=== PATIENT | female | born 1990 | race Caucasian/White ===

== ENCOUNTER 2019-05-11 06:06 | Inpatient (IN) | payer BC ==
[2019-05-11] MEDS ORDERED: Misoprostol 25 MCG (1/4 of 100 MCG) Tab VAG PRN (07:10)
[2019-05-11] MEDS ORDERED: Ondansetron 4 MG/2 ML SDV IVPUSH PRN (07:10)
[2019-05-11] MEDS ORDERED: Sodium Chloride 0.9% 10 ML Syringe FLUSH PRN (07:10)
[2019-05-11] MEDS ORDERED: Famotidine 20 MG Tab PO PRN (07:10)
[2019-05-11] MEDS ORDERED: Nalbuphine 10 MG/ML Syringe IVPUSH PRN (07:10)
--- NOTE | 2019-05-11 07:13 | PCM.LDHP ---
L&D History of Present Illness - General Date of Service: 05/11/19 Admit Problem/Dx: Patient Status Order with Admit Dx/Problem 05/11/19 07:10 Patient Status [ADT] Routine Admission Diagnosis/Problem Admission Diagnosis/Problem Normal in third trimester Source of Information: Patient History Limitations: Reports: No Limitations - History of Present Illness Introduction:: Patient is a 28 y/o at 40 2/7 wks who presents for IOL. Doing well. Notes good FM. 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: : 1 Para: 0 LMP (Approximate): - Past Surgical History Other Surgical History Comment: No past surgical history Social & Family History - Tobacco Use Smoking Status *Q: Never Smoker - Alcohol Use Alcohol Use History: No - Recreational Drug Use Recreational Drug Use: No Drug Use in Last 12 Months: No H&P Review of Systems - Review of Systems: Review Of Systems: See Below General: Reports: No Symptoms Pulmonary: Reports: No Symptoms Cardiovascular: Reports: No Symptoms Gastrointestinal: Reports: No Symptoms Genitourinary: Reports: No Symptoms Musculoskeletal: Reports: No Symptoms Psychiatric: Reports: No Symptoms Neurological: Reports: No Symptoms L&D Exam - Exam Exam: See Below - OB Specific Contraction Intensity: Irritability Movement: Active Heart Tones: Present Heart Tones per Min: 140 Heart Rate (FHR) Variability: Moderate (6-25 bmp) Presentation: Vertex - Faith Score Faith Score Cervix Position: Posterior Faith Score Consistency: Medium Faith Score Effacement: 31-50% Faith Score Dilation: 1-2 cm Faith Score Infant's Station: -3 Faith Score Total: 3 - Exam General: Alert, Oriented, Cooperative Lungs: Clear to Auscultation, Normal Respiratory Effort Cardiovascular: Regular Rate, Regular Rhythm GI/Abdominal Exam: Soft, Non-Tender Genitourinary: Normal external exam Extremities: Normal Inspection Skin: Warm, Dry, Intact - Patient Data Result Diagrams: 05/11/19 07:40 - Problem List (1) 40 weeks gestation of SNOMED Code(s): 60121944 ICD Code: Z3A.40 - 40 WEEKS GESTATION OF Status: Acute Current Visit: Yes Problem List Initiated/Reviewed/Updated: Yes Orders Last 24hrs: Active Orders 24 hr Category Date Time Status Patient Status [ADT] Routine ADT 05/11/19 07:10 Ordered Communication Order [RC] ASDIRECTED Care 05/11/19 07:10 Ordered Communication Order [RC] ASDIRECTED Care 05/11/19 07:10 Ordered Communication Order [RC] ASDIRECTED Care 05/11/19 07:10 Ordered Heart Tones [RC] ASDIRECTED Care 05/11/19 07:11 Ordered Monitoring [RC] INTERMITTENT Care 05/11/19 07:10 Ordered Non Stress Test [RC] PER UNIT ROUTINE Care 05/11/19 07:10 Ordered Notify Provider [RC] ASDIRECTED Care 05/11/19 07:10 Ordered Notify Provider [RC] PRN Care 05/11/19 07:10 Ordered Peripheral IV Care [RC] . DIRECTED Care 05/11/19 07:11 Ordered Vaginal Exam [RC] ASDIRECTED Care 05/11/19 07:10 Ordered Vital Signs [RC] ASDIRECTED Care 05/11/19 07:10 Ordered Regular Diet [DIET] Diet 05/11/19 Breakfast Ordered CBC W/O DIFF,HEMOGRAM [HEME] Routine Lab 05/11/19 07:10 Ordered RAPID PLASMA REAGIN,RPR [CHEM] Routine Lab 05/11/19 07:10 Ordered TYPE AND SCREEN [BBK] Routine Lab 05/11/19 07:10 Ordered Famotidine [Pepcid] Med 05/11/19 07:10 Ordered 20 mg PO Q12H PRN Lactated Ringers [Ringers, Lactated] 1,000 ml Med 05/11/19 07:15 Ordered IV ASDIRECTED Nalbuphine [Nubain] Med 05/11/19 07:10 Ordered 10 mg IVPUSH Q2H PRN Ondansetron [Zofran] Med 05/11/19 07:10 Ordered 4 mg IVPUSH Q4H PRN Oxytocin/Lactated Ringers [Pitocin in LR 10 Units/1,000 Med 05/11/19 07:15 Ordered ML] 10 unit in 1,000 ml IV .CONTINUOUS Oxytocin/Lactated Ringers [Pitocin in LR 10 Units/1,000 Med 05/11/19 07:15 Ordered ML] 10 unit in 1,000 ml IV TITRATE Sodium Chloride 0.9% [Saline Flush] Med 05/11/19 07:10 Ordered 10 ml FLUSH ASDIRECTED PRN miSOPROStoL [Cytotec] Med 05/11/19 07:10 Ordered 25 mcg VAG Q4H PRN Electronic Heart Tones Ext w TOCO [WOMSER] Oth 05/11/19 07:10 Ordered Routine Electronic Heart Tones Internal [WOMSER] Per Unit Oth 05/11/19 07:10 Ordered Routine Peripheral IV Insertion Adult [OM.PC] Routine Oth 05/11/19 07:10 Ordered Resuscitation Status Routine Resus Stat 05/11/19 07:10 Ordered Assessment/Plan Comment:: * labs to be done * GBS negative * Nolasco bulb placed. Will also start with Cytotec. Transition into pitocin when able * Pain management per patient preference * Anticipate
[2019-05-11] MEDS ORDERED: Oxytocin/Lactated Ringers 10 UNIT/1,000 ML BAG IV SCH ×2 (07:15)
[2019-05-11] MEDS ORDERED: Misoprostol 25 MCG (1/4 of 100 MCG) Tab ONE (07:19)
[2019-05-11] MEDS: Lactated Ringers 1,000 ML IV SCH ×4 (15:49→21:47)
[2019-05-11] MEDS ORDERED: fentaNYL 100 MCG/2 ML SDV EPIDUR PRN (19:38)
[2019-05-11] MEDS ORDERED: ePHEDrine 50 MG/ML SDV IVPUSH PRN (19:38)
[2019-05-11] MEDS ORDERED: diphenhydrAMINE 50 MG/ML SDV IVPUSH PRN (19:38)
[2019-05-11] MEDS: Bupivacaine/fentaNYL/NS 100 ML Bag EPIDUR PRN (19:53)
--- NOTE | 2019-05-11 20:39 | PCM.PREANE ---
Preanesthetic Assessment - Anesthesia/Transfusion/Family Hx Anesthesia History: No Prior Anesthesia Family History of Anesthesia Reaction: No Transfusion History: No Prior Transfusion(s) - Review of Systems General: No Symptoms Pulmonary: No Symptoms Cardiovascular: No Symptoms Gastrointestinal: No Symptoms Neurological: No Symptoms Other: Reports: None - Physical Assessment Vital Signs: Last Vital Signs Temp 36.8 C 05/11/19 07:10 Pulse 80 05/11/19 07:10 Resp 16 05/11/19 07:10 BP 112/71 05/11/19 07:10 Pulse Ox 96 05/11/19 07:10 Height: 1.73 m Weight: 79.379 kg ASA Class: 2 Mental Status: Alert & Oriented x3 Airway Class: Mallampati = 2 Dentition: Reports: Normal Dentition Thyro-Mental Finger Breadths: 3 Mouth Opening Finger Breadths: 3 ROM/Head Extension: Full Lungs: Clear to Auscultation, Normal Respiratory Effort Cardiovascular: Regular Rate, Regular Rhythm - Lab Values: Laboratory Last Values WBC 10.07 K/mm3 (3.98-10.04) H 05/11/19 07:40 RBC 4.11 M/mm3 (3.98-5.22) 05/11/19 07:40 Hgb 12.1 gm/dl (11.2-15.7) 05/11/19 07:40 Hct 36.2 % (34.1-44.9) 05/11/19 07:40 MCV 88.1 fl (79.4-94.8) 05/11/19 07:40 MCH 29.4 pg (25.6-32.2) 05/11/19 07:40 MCHC 33.4 g/dl (32.2-35.5) 05/11/19 07:40 RDW Std Deviation 43.0 fL (36.4-46.3) 05/11/19 07:40 Plt Count 237 K/mm3 (182-369) 05/11/19 07:40 MPV 10.9 fl (9.4-12.3) 05/11/19 07:40 Blood Type B POSITIVE 05/11/19 07:40 Gel Antibody Screen Negative 05/11/19 07:40 - Allergies Allergies/Adverse Reactions: Allergies Allergy/AdvReac Type Severity Reaction Status Date / Time No Known Allergies Allergy Verified 01/30/20 08:30 - Acknowledgements Anesthesia Type Planned: Epidural Pt an Appropriate Candidate for the Planned Anesthesia: Yes Alternatives and Risks of Anesthesia Discussed w Pt/Guardian: Yes Pt/Guardian Understands and Agrees with Anesthesia Plan: Yes PreAnesthesia Questionnaire Genitourinary History: 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 [employer] History: Reports: - Past Surgical History Other Surgical History Comment: No past surgical history - SUBSTANCE USE Smoking Status *Q: Never Smoker Second Hand Smoke Exposure: No Recreational Drug Use History: No - HOME MEDS Home Medications: Home Meds Cetirizine [ZyrTEC] 10 mg PO DAILY 05/11/19 [History] [id number]/Iron Fumarate/FA/DSS [ 19 Tablet] 1 tab PO DAILY 05/11/19 [ History] - CURRENT (IN HOUSE) MEDS Current Meds: Current Medications Diphenhydramine HCl (Benadryl) 25 mg IVPUSH Q6H PRN PRN Reason: pruritis Ephedrine Sulfate (Ephedrine Sulfate) 5 mg IVPUSH ASDIRECTED PRN PRN Reason: Hypotension Famotidine (Pepcid) 20 mg PO Q12H PRN PRN Reason: Heartburn Fentanyl (Sublimaze) 100 mcg EPIDUR Q3H PRN PRN Reason: Pain Last Admin: 05/11/19 19:52 Dose: 100 mcg Fentanyl/Bupivacaine HCl (Fentanyl/Bupivacaine/Ns 2 Mcg-0.125% 100 Ml) 100 ml EPIDUR ASDIRECTED PRN PRN Reason: Pain Last Admin: 05/11/19 19:53 Dose: 100 ml Lactated Ringer's (Ringers, Lactated) 1,000 mls @ 40 mls/hr IV ASDIRECTED ALIX Last Admin: 05/11/19 20:30 Dose: 40 mls/hr Oxytocin/Lactated Ringer's (Pitocin In Lr 10 Units/1,000 Ml) 10 unit in 1,000 mls @ 12 mls/hr IV TITRATE ALIX; Protocol Last Titration: 05/11/19 19:01 Dose: 7 munits/min, 42 mls/hr Oxytocin/Lactated Ringer's (Pitocin In Lr 10 Units/1,000 Ml) 10 unit in 1,000 mls @ 500 mls/hr IV .CONTINUOUS ALIX Misoprostol (Cytotec) 25 mcg VAG Q4H PRN PRN Reason: cervical ripening Last Admin: 05/11/19 12:14 Dose: 25 mcg Nalbuphine HCl (Nubain) 10 mg IVPUSH Q2H PRN PRN Reason: Pain Ondansetron HCl (Zofran) 4 mg IVPUSH Q4H PRN PRN Reason: Nausea/Vomiting Sodium Chloride (Saline Flush) 10 ml FLUSH ASDIRECTED PRN PRN Reason: Keep Vein Open Discontinued Medications Misoprostol (Cytotec) Confirm Administered Dose 25 mcg .ROUTE .[facility]-MED ONE Stop: 05/11/19 07:20 Last Admin: 05/11/19 07:25 Dose: 25 mcg
--- NOTE | 2019-05-11 20:41 | PCM.PNLD ---
Labor Progress Note - VS & Meds Vital Signs: Last Vital Signs Temp 36.8 C 05/11/19 07:10 Pulse 80 05/11/19 07:10 Resp 16 05/11/19 07:10 BP 112/71 05/11/19 07:10 Pulse Ox 96 05/11/19 07:10 Active Medications: Current Medications Diphenhydramine HCl (Benadryl) 25 mg IVPUSH Q6H PRN PRN Reason: pruritis Ephedrine Sulfate (Ephedrine Sulfate) 5 mg IVPUSH ASDIRECTED PRN PRN Reason: Hypotension Famotidine (Pepcid) 20 mg PO Q12H PRN PRN Reason: Heartburn Fentanyl (Sublimaze) 100 mcg EPIDUR Q3H PRN PRN Reason: Pain Last Admin: 05/11/19 19:52 Dose: 100 mcg Fentanyl/Bupivacaine HCl (Fentanyl/Bupivacaine/Ns 2 Mcg-0.125% 100 Ml) 100 ml EPIDUR ASDIRECTED PRN PRN Reason: Pain Last Admin: 05/11/19 19:53 Dose: 100 ml Lactated Ringer's (Ringers, Lactated) 1,000 mls @ 40 mls/hr IV ASDIRECTED ALIX Last Admin: 05/11/19 20:30 Dose: 40 mls/hr Oxytocin/Lactated Ringer's (Pitocin In Lr 10 Units/1,000 Ml) 10 unit in 1,000 mls @ 12 mls/hr IV TITRATE ALIX; Protocol Last Titration: 05/11/19 19:01 Dose: 7 munits/min, 42 mls/hr Oxytocin/Lactated Ringer's (Pitocin In Lr 10 Units/1,000 Ml) 10 unit in 1,000 mls @ 500 mls/hr IV .CONTINUOUS [facility] Misoprostol (Cytotec) 25 mcg VAG Q4H PRN PRN Reason: cervical ripening Last Admin: 05/11/19 12:14 Dose: 25 mcg Nalbuphine HCl (Nubain) 10 mg IVPUSH Q2H PRN PRN Reason: Pain Ondansetron HCl (Zofran) 4 mg IVPUSH Q4H PRN PRN Reason: Nausea/Vomiting Sodium Chloride (Saline Flush) 10 ml FLUSH ASDIRECTED PRN PRN Reason: Keep Vein Open Discontinued Medications Misoprostol (Cytotec) Confirm Administered Dose 25 mcg .ROUTE .STK-MED ONE Stop: 05/11/19 07:20 Last Admin: 05/11/19 07:25 Dose: 25 mcg - Uterine Contractions Uterine Monitoring Mode: External [place] Contraction Intensity: Moderate Uterine Resting Tone: Soft - Monitoring Monitor Mode: External Ultrasound Heart Rate (FHR) Baseline: 130 Heart Rate (FHR) Variability: Moderate (6-25 bmp) Accelerations: Present, 10x10 (=/<32 wks) Decelerations: None Strip Review: Category I - Vaginal Exam Dilation (cm): 4 Effacement (Percent): 75 Station: -2 Cervical Position: Midposition - Labor Progress (Free Text) Labor Progress: Doing well. Just received her epidural. Pitocin at 7. AROM performed with release of scant amount of clear fluid. Continue present management
[2019-05-12] MEDS ORDERED: Bupivacaine 0.25% 10 ML SDV ONE
[2019-05-12] MEDS: Bupivacaine/fentaNYL/NS 100 ML Bag EPIDUR PRN (05:17)
[2019-05-12] MEDS ORDERED: Methylergonovine 0.2 MG/1 ML Amp ONE (06:15)
[2019-05-12] MEDS ORDERED: Misoprostol 200 MCG Tab ONE (06:15)
[2019-05-12] MEDS ORDERED: Misoprostol 200 MCG Tab PO ONE (06:22)
[2019-05-12] MEDS ORDERED: Methylergonovine 0.2 MG/1 ML Amp IM ONE (06:22)
[2019-05-12] MEDS ORDERED: ceFAZolin 1 GM in Premix Bag 1 BAG IV ONE (06:40)
--- NOTE | 2019-05-12 06:47 | PCM.DEL ---
L & D Note - General Info Date of Service: 05/12/19 - Delivery Note Labor: Induced by ARM, Induced by Oxytocin Cervical Ripening Method: Balloon Device Delivery Outcome: Livebirth Infant Delivery Method: Spontaneous Vaginal Delivery-Single Infant Delivery Mode: Spontaneous Presentation: Left Occiput Anterior (MARCO) Nuchal Cord: None Anesthesia Type: Epidural Amniotic Fluid Description: Clear Episiotomy Type: None Laceration: 2nd Degree, Perineal Suture type: Vicryl Suture size: 2-0 Placenta: Intact, Spontaneous Cord: 3 Vessels Estimated Blood Loss: 650 [place]: Bulb Syringe, Stimulated, Warmed, [place] Used, Warmer Used Delivery Comments (Free Text/Narrative):: Patient found to be complete and began pushing. With maternal pushing effort head delivered from an MARCO presentation, but then restituted to an ELINA presentation. No nuchal cord. With gentle downward tractions the shoulders and body delivered. placed on maternal abdomen. Cord clamped adn cut. Cord blood obtained. Placenta allowed time to separate and expelled intact. Patient with atony and bleeding at this time managed with buccal cytotec, IM methergine, and sweep of BRITTNEY. Given dose of Ancef for manual exploration. Good response to these interventions. Exam of the perineum showed a 2nd degree laceration which was repaired with a 2-0 vicryl in the typical fashion - General Info Date of Service: 05/12/19 - Patient Data Vitals - Most Recent: Last Vital Signs Temp 36.8 C 05/11/19 07:10 Pulse 80 05/11/19 07:10 Resp 16 05/11/19 07:10 BP 112/71 05/11/19 07:10 Pulse Ox 96 05/11/19 07:10 Weight - Most Recent: 79.379 kg I&O - Last 24 Hours: Intake & Output 05/11/19 05/11/19 05/12/19 14:59 22:59 06:59 Intake Total 3000 1700 Output Total 1100 Balance 3000 600 - Problem List & Annotations (1) 40 weeks gestation of SNOMED Code(s): 83014988 Code(s): Z3A.40 - 40 WEEKS GESTATION OF Status: Acute Current Visit: Yes (2) Vaginal delivery SNOMED Code(s): 291913601 Code(s): O80 - ENCOUNTER FOR FULL-TERM UNCOMPLICATED DELIVERY Status: Acute Current Visit: Yes (3) hemorrhage SNOMED Code(s): 82140274 Code(s): O72.1 - OTHER IMMEDIATE HEMORRHAGE Status: Acute Current Visit: Yes Qualifiers: hemorrhage type: third-stage Qualified Code(s): O72.0 - Third- stage hemorrhage - Problem List Review Problem List Initiated/Reviewed/Updated: Yes - My Orders Last 24 Hours: My Active Orders 05/11/19 07:10 Patient Status [ADT] Routine Communication Order [RC] ASDIRECTED Communication Order [RC] ASDIRECTED Communication Order [RC] ASDIRECTED Monitoring [RC] INTERMITTENT Non Stress Test [RC] PER UNIT ROUTINE Notify Provider [RC] ASDIRECTED Notify Provider [RC] PRN Vaginal Exam [RC] ASDIRECTED Vital Signs [RC] ASDIRECTED Famotidine [Pepcid] 20 mg PO Q12H PRN Nalbuphine [Nubain] 10 mg IVPUSH Q2H PRN Ondansetron [Zofran] 4 mg IVPUSH Q4H PRN Sodium Chloride 0.9% [Saline Flush] 10 ml FLUSH ASDIRECTED PRN miSOPROStoL [Cytotec] 25 mcg VAG Q4H PRN Electronic Heart Tones Ext w TOCO [WOMSER] Routine Electronic Heart Tones Internal [WOMSER] Per Unit Routine Peripheral IV Insertion Adult [OM.PC] Routine Resuscitation Status Routine 05/11/19 07:11 Heart Tones [RC] ASDIRECTED Peripheral IV Care [RC] . DIRECTED 05/11/19 07:15 Lactated Ringers [Ringers, Lactated] 1,000 ml IV ASDIRECTED Oxytocin/Lactated Ringers [Pitocin in LR 10 Units/1,000 ML] 10 unit in 1,000 ml IV .CONTINUOUS Oxytocin/Lactated Ringers [Pitocin in LR 10 Units/1,000 ML] 10 unit in 1,000 ml IV TITRATE 05/11/19 Breakfast Regular Diet [DIET] 05/12/19 06:40 ceFAZolin [Ancef] 1 gm Premix Bag 1 bag IV ONETIME 05/12/19 06:44 Patient Status Manage Transfer [TRANSFER] Routine - Assessment Assessment:: PPD#0 from - Plan Plan:: * Routine cares * monitor bleeding closely. Will not plan additional lab work unless patient symptomatic * Breast feeding * Discharge home in 1-2 days
[2019-05-12] MEDS ORDERED: Acetaminophen 325 MG Tab PO PRN (07:32)
[2019-05-12] MEDS ORDERED: Witch Hazel Medicated Pads 40/Jar TOP PRN (07:32)
[2019-05-12] MEDS ORDERED: Docusate Sodium 100 MG Cap PO PRN (07:32)
[2019-05-12] MEDS ORDERED: Benzocaine/Menthol 20%-0.5% Spray 56 GM Canister TOP PRN (07:32)
[2019-05-12] MEDS: Ibuprofen 600 MG Tab PO PRN ×2 (15:30→21:00)
--- NOTE | 2019-05-13 05:31 | PCM48HPAN ---
Post Anesthesia Note - EVALUATION WITHIN 48HRS OF ANESTHETIC Vital Signs in Normal Range: Yes Patient Participated in Evaluation: Yes Respiratory Function Stable: Yes Airway Patent: Yes Cardiovascular Function Stable: Yes Hydration Status Stable: Yes Pain Control Satisfactory: Yes Nausea and Vomiting Control Satisfactory: Yes Mental Status Recovered: Yes Vital Signs: Last Vital Signs Temp 36.3 C 05/12/19 20:31 Pulse 65 05/12/19 20:31 Resp 14 05/12/19 20:31 BP 119/68 05/12/19 20:31 Pulse Ox 97 05/12/19 20:31
[2019-05-13] MEDS: Ibuprofen 600 MG Tab PO PRN ×3 (06:10→18:05)
--- NOTE | 2019-05-13 08:38 | PCM.SN ---
- Free Text/Narrative Note: day 1 note: Patient is doing well in the period. Minimal lochia, voiding well, ambulated without problems. Baby is having some nursing concerns. Repeat is considering keeping the baby till tomorrow. We'll see how she does during the course of the day. Patient is afebrile, vital signs are stable Abdomen is flat, soft, uterus is below the umbilicus and is firm and nontender. Legs are nontender. Assessment: recovery going well. Plan: Routine care. Patient be discharged home within the next 24-48 hours.
[2019-05-14] MEDS: Ibuprofen 600 MG Tab PO PRN ×2 (04:03→09:55)
--- NOTE | 2019-05-14 06:15 | PCM.DCSUM1 ---
Discharge Summary - Hospital Course Free Text/Narrative:: 40+ week intrauterine admitted for induction of labor. Induction proceeded with artificial rupture membranes and oxytocin after cervical ripening with the balloon device. She delivered a viable, mcgarry, female vaginally. She had a second-degree perineal laceration. She is repaired with Vicryl in a routine fashion. Estimated blood loss was increased at 650 mL. Patient is breast-feeding. She has recovered nicely and is doing well with ambulation, voiding, pain control and nursing. She is desiring discharge home. Diagnosis: Stroke: No - Discharge Data Discharge Date: 05/14/19 Discharge Disposition: Home, Self-Care 01 Condition: Good - Referral to Home Health Primary Care Physician: Deepa Melo MD - Patient Instructions Diet: Regular Diet as Tolerated Activity: As Tolerated Activity, Other: Pelvic rest for 6 weeks Driving: May Drive Today Showering/Bathing: May Shower Showering/Bathing, Other: May Bathe Notify Provider of: Fever, Increased Pain, Swelling and Redness, Drainage, Nausea and/or Vomiting - Discharge Plan *PRESCRIPTION DRUG MONITORING PROGRAM REVIEWED*: No *COPY OF PRESCRIPTION DRUG MONITORING REPORT IN PATIENT RYAN: No Home Medications: Home Meds NJZ262/Iron Fumarate/FA/DSS [ 19 Tablet] 1 tab PO DAILY 05/11/19 [ History] Docusate Sodium [Colace] 100 mg PO BID PRN cap 05/12/19 [Rx] Ibuprofen [Motrin] 600 mg PO Q6H PRN tablet 05/12/19 [Rx] Referrals: Deepa Melo MD [Primary Care Provider] - (2-3 weeks for check ) - Discharge Summary/Plan Comment DC Time >30 min.: No Discharge Summary/Plan Comment: Discharge instructions: 1. Discharge home 2. Diet, activity and follow-up discussed with patient. Recommend nursing diet with increased calories and calcium. 3. Precautions given concern increased pain, bleeding, temperature, signs/ symptoms of DVT/PE. 4. Medications per home medication was printed, discussed with and given to the patient. 5. [facility] Diagnosis: 1. Term -delivered. 2. hemorrhage with Blood loss at delivery 650 mL. Condition: Good - Patient Data Vitals - Most Recent: Last Vital Signs Temp 36.6 C 05/14/19 04:06 Pulse 64 05/14/19 04:06 Resp 14 05/14/19 04:06 BP 112/78 05/14/19 04:06 Pulse Ox 97 05/14/19 04:06 Weight - Most Recent: 79.379 kg I&O - Last 24 hours: Intake & Output 05/13/19 05/13/19 05/14/19 14:59 22:59 06:59 Intake Total 240 Balance 240 Med Orders - Current: Current Medications Acetaminophen (Tylenol) 650 mg PO Q4H PRN PRN Reason: mild pain or fever Benzocaine/Menthol (Dermoplast Pain Relief [place]) 0 gm TOP ASDIRECTED PRN PRN Reason: Perineal Comfort Measure Last Admin: 05/12/19 09:58 Dose: 1 can Docusate Sodium (Colace) 100 mg PO BID PRN PRN Reason: Constipation Last Admin: 05/13/19 11:46 Dose: 100 mg Ibuprofen (Motrin) 600 mg PO Q6H PRN PRN Reason: Mild pain or fever Last Admin: 05/14/19 04:03 Dose: 600 mg Witch Vanessa (Tucks) 1 pad TOP ASDIRECTED PRN PRN Reason: Perineal Comfort Measure Last Admin: 05/12/19 09:57 Dose: 1 jar Discontinued Medications Bupivacaine HCl (Sensorcaine-Mpf 0.25%) 10 ml .ROUTE .STK-MED ONE Stop: 05/12/19 00:01 Diphenhydramine HCl (Benadryl) 25 mg IVPUSH Q6H PRN PRN Reason: pruritis Ephedrine Sulfate (Ephedrine Sulfate) 5 mg IVPUSH ASDIRECTED PRN PRN Reason: Hypotension Famotidine (Pepcid) 20 mg PO Q12H PRN PRN Reason: Heartburn Fentanyl (Sublimaze) 100 mcg EPIDUR Q3H PRN PRN Reason: Pain Last Admin: 05/11/19 19:52 Dose: 100 mcg Fentanyl/Bupivacaine HCl (Fentanyl/Bupivacaine/Ns 2 Mcg-0.125% 100 Ml) 100 ml EPIDUR ASDIRECTED PRN PRN Reason: Pain Last Admin: 05/12/19 05:17 Dose: 100 ml Lactated Ringer's (Ringers, Lactated) 1,000 mls @ 40 mls/hr IV ASDIRECTED ALIX Last Admin: 05/11/19 21:47 Dose: 40 mls/hr Oxytocin/Lactated Ringer's (Pitocin In Lr 10 Units/1,000 Ml) 10 unit in 1,000 mls @ 12 mls/hr IV TITRATE ALIX; Protocol Last Titration: 05/12/19 06:09 Dose: 500 mls/hr Oxytocin/Lactated Ringer's (Pitocin In Lr 10 Units/1,000 Ml) 10 unit in 1,000 mls @ 500 mls/hr IV .CONTINUOUS ALIX Last Admin: 05/12/19 06:20 Dose: 500 mls/hr Cefazolin Sodium/Dextrose 1 gm (/ Premix) 50 mls @ 100 mls/hr IV ONETIME ONE Stop: 05/12/19 07:09 Last Admin: 05/12/19 15:37 Dose: 100 mls/hr Cefazolin Sodium/Dextrose (Ancef) Confirm Administered Dose 50 mls @ as directed .ROUTE .STK-MED ONE Stop: 05/12/19 15:36 Last Admin: 05/12/19 16:28 Dose: Not Given Methylergonovine Maleate (Methergine) Confirm Administered Dose 0.2 mg .ROUTE .STK-MED ONE Stop: 05/12/19 06:16 Last Admin: 05/12/19 06:24 Dose: Not Given Methylergonovine Maleate (Methergine) 0.2 mg IM Q4H ONE Stop: 05/12/19 06:23 Last Admin: 05/12/19 06:19 Dose: 0.2 mg Misoprostol (Cytotec) 25 mcg VAG Q4H PRN PRN Reason: cervical ripening Last Admin: 05/11/19 12:14 Dose: 25 mcg Misoprostol (Cytotec) Confirm Administered Dose 25 mcg .ROUTE .STK-MED ONE Stop: 05/11/19 07:20 Last Admin: 05/11/19 07:25 Dose: 25 mcg Misoprostol (Cytotec) Confirm Administered Dose 600 mcg .ROUTE .STK-MED ONE Stop: 05/12/19 06:16 Last Admin: 05/12/19 06:24 Dose: Not Given Misoprostol (Cytotec) 600 mcg PO ONETIME ONE Stop: 05/12/19 06:23 Last Admin: 05/12/19 06:15 Dose: 600 mcg Nalbuphine HCl (Nubain) 10 mg IVPUSH Q2H PRN PRN Reason: Pain Ondansetron HCl (Zofran) 4 mg IVPUSH Q4H PRN PRN Reason: Nausea/Vomiting Sodium Chloride (Saline Flush) 10 ml FLUSH ASDIRECTED PRN PRN Reason: Keep Vein Open
== END 2019-05-14 10:55 | disposition home or self-care (01) | DRG 560 ==
LOC: JD.OB 06:06 → OBSVTOIN 05-12 06:06 → JD.OB 05-12 06:07
PROVIDERS: ADMIT Obstetrics & Gynecology; ATTEND Obstetrics & Gynecology
PROC: 10E0XZZ Delivery of Products of Conception, External Approach (ICD-10-PCS; principal; 2019-05-12)
PROC: 10907ZC Drainage of Amniotic Fluid, Therapeutic from Products of Conception, Via Natural or Artificial Opening (ICD-10-PCS; 2019-05-12)
PROC: 3E033VJ Introduction of Other Hormone into Peripheral Vein, Percutaneous Approach (ICD-10-PCS; 2019-05-12)
PROC: 3E0P7VZ Introduction of Hormone into Female Reproductive, Via Natural or Artificial Opening (ICD-10-PCS; 2019-05-12)
PROC: 0KQM0ZZ Repair Perineum Muscle, Open Approach (ICD-10-PCS; 2019-05-12)
PROC: 3E0R3BZ Introduction of Anesthetic Agent into Spinal Canal, Percutaneous Approach (ICD-10-PCS; 2019-05-12)
PROC: 00HU33Z Insertion of Infusion Device into Spinal Canal, Percutaneous Approach (ICD-10-PCS; 2019-05-12)
DX: O48.0 Post-term pregnancy (principal); O72.1 Other immediate postpartum hemorrhage; Z3A.40 40 weeks gestation of pregnancy; O70.1 Second degree perineal laceration during delivery; Z37.0 Single live birth
CPT/HCPCS: 01967; 36415; 51701; 51702; 59025; 59409; 85027; 86592; 86850; 86900; 86901; A9270-GY; J0690; J2210; J2590; J3010; J3490; J7120

== ENCOUNTER 2021-03-05 06:58 | Inpatient (IN) | payer BC ==
[2021-03-05] MEDS ORDERED: Ondansetron 4 MG/2 ML SDV IVPUSH PRN (07:09)
[2021-03-05] MEDS ORDERED: Lidocaine 1% 50 ML MDV INJECT ONE (07:09)
[2021-03-05] MEDS ORDERED: Sodium Chloride 0.9% 10 ML Syringe FLUSH PRN (07:09)
[2021-03-05] MEDS ORDERED: Nalbuphine 10 MG/1 ML Vial IVPUSH PRN (07:09)
[2021-03-05] MEDS ORDERED: Oxytocin/Lactated Ringers 10 UNIT/1,000 ML BAG IV SCH ×2 (07:15)
[2021-03-05] MEDS ORDERED: ePHEDrine 50 MG/ML SDV IVPUSH PRN (07:29)
[2021-03-05] MEDS ORDERED: Bupivacaine/fentaNYL/NS 100 ML Bag EPIDUR PRN (07:29)
[2021-03-05] MEDS ORDERED: diphenhydrAMINE 50 MG/ML SDV IVPUSH PRN (07:29)
[2021-03-05] MEDS ORDERED: fentaNYL 100 MCG/2 ML SDV EPIDUR PRN (07:29)
[2021-03-05] MEDS: Lactated Ringers 1,000 ML IV SCH ×2 (07:44→12:08)
--- NOTE | 2021-03-05 07:53 | PCM.LDHP ---
L&D History of Present Illness - General Date of Service: 03/05/21 Admit Problem/Dx: Patient Status Order with Admit Dx/Problem 03/05/21 07:09 Patient Status [ADT] Routine Admission Diagnosis/Problem Admission Diagnosis/Problem Source of Information: Patient History Limitations: Reports: No Limitations - History of Present Illness Introduction:: Patient is a 30 y/o at 40 1/7 wks who presents for IOL. Doing well today. 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 Para: 1 LMP (Approximate): - Past Surgical History Other Surgical History Comment: No past surgical history Social & Family History - Family History Family Medical History: No Pertinent Family History - Tobacco Use Tobacco Use Status *Q: Never Tobacco User - Caffeine Use Caffeine Use: Reports: None - Alcohol Use Alcohol Use History: No - Recreational Drug Use Recreational Drug Use: No H&P Review of Systems - Review of Systems: Review Of Systems: See Below General: Reports: No Symptoms Pulmonary: Reports: No Symptoms Cardiovascular: Reports: No Symptoms Gastrointestinal: Reports: No Symptoms Genitourinary: Reports: No Symptoms Musculoskeletal: Reports: No Symptoms Psychiatric: Reports: No Symptoms Neurological: Reports: No Symptoms L&D Exam - Exam Exam: See Below - OB Specific Contraction Intensity: Irritability Movement: Active Heart Tones: Present Heart Tones per Min: 130 Heart Rate (FHR) Variability: Moderate (6-25 bpm) Presentation: Vertex - Faith Score Faith Score Cervix Position: Midposition Faith Score Consistency: Medium Faith Score Effacement: 51-70% Faith Score Dilation: 1-2 cm Faith Score Infant's Station: -3 Faith Score Total: 5 - Exam General: Alert, Oriented, Cooperative Lungs: Clear to Auscultation, Normal Respiratory Effort Cardiovascular: Regular Rate, Regular Rhythm GI/Abdominal Exam: Soft, Non-Tender Genitourinary: Normal external exam Extremities: Normal Inspection Skin: Warm, Dry, Intact - Problem List (1) 40 weeks gestation of SNOMED Code(s): 09875631 ICD Code: Z3A.40 - 40 WEEKS GESTATION OF Status: Acute Current Visit: No Problem List Initiated/Reviewed/Updated: Yes Orders Last 24hrs: Active Orders 24 hr Category Date Time Status Patient Status [ADT] Routine ADT 03/05/21 07:09 Active Activity as Tolerated [RC] PFP Care 03/05/21 07:09 Active Communication Order [RC] ASDIRECTED Care 03/05/21 07:09 Active Communication Order [RC] ASDIRECTED Care 03/05/21 07:30 Active Cooling Warming Measures [RC] ASDIRECTED Care 03/05/21 07:30 Active Heart Tones [RC] ASDIRECTED Care 03/05/21 07:10 Active Non Stress Test [RC] PER UNIT ROUTINE Care 03/05/21 07:09 Active Notify Provider [RC] ASDIRECTED Care 03/05/21 07:30 Active Notify Provider [RC] ASDIRECTED Care 03/05/21 07:30 Active Notify Provider [RC] PFP Care 03/05/21 07:09 Active Notify Provider [RC] PRN Care 03/05/21 07:09 Active Oxygen Therapy [RC] ASDIRECTED Care 03/05/21 07:30 Active Peripheral IV Care [RC] . DIRECTED Care 03/05/21 07:10 Active Pulse Oximetry [RC] ASDIRECTED Care 03/05/21 07:30 Active Vital Signs [RC] PER UNIT ROUTINE Care 03/05/21 07:09 Active Vital Signs [RC] Q1H Care 03/05/21 07:30 Active BLOOD BANK HOLD SPECIMEN [BBK] Stat Lab 03/05/21 07:09 Ordered CBC WITH AUTO DIFF [HEME] Stat Lab 03/05/21 07:23 Received CORONAVIRUS COVID-19 [place] [MOLEC] Stat Lab 03/05/21 07:20 Received RAPID PLASMA REAGIN,RPR [CHEM] Routine Lab 03/05/21 07:23 Received Bupivacaine/fentaNYL/NS [fentaNYL/Bupivacaine/NS 2 MCG- Med 03/05/21 07:29 Active 0.125% 100 ML] 100 ml EPIDUR ASDIRECTED PRN Lactated Ringers [Ringers, Lactated] 1,000 ml Med 03/05/21 07:15 Active IV ASDIRECTED Nalbuphine [Nubain] Med 03/05/21 07:09 Active 10 mg IVPUSH Q2H PRN Ondansetron [Zofran] Med 03/05/21 07:09 Active 4 mg IVPUSH Q4H PRN Oxytocin/Lactated Ringers [Pitocin in LR 10 Units/1,000 Med 03/05/21 07:15 Active ML] 10 unit in 1,000 ml IV .CONTINUOUS Oxytocin/Lactated Ringers [Pitocin in LR 10 Units/1,000 Med 03/05/21 07:15 Active ML] 10 unit in 1,000 ml IV TITRATE Sodium Chloride 0.9% [Saline Flush] Med 03/05/21 07:09 Active 10 ml FLUSH ASDIRECTED PRN diphenhydrAMINE [Benadryl] Med 03/05/21 07:29 Active 25 mg IVPUSH Q6H PRN ePHEDrine [ePHEDrine sulfate] Med 03/05/21 07:29 Active 5 mg IVPUSH ASDIRECTED PRN fentaNYL [Sublimaze] Med 03/05/21 07:29 Active 100 mcg EPIDUR Q3H PRN Electronic Heart Tones Ext w TOCO [WOMSER] Oth 03/05/21 07:09 Ordered Routine Electronic Heart Tones Internal [WOMSER] Per Unit Oth 03/05/21 07:09 Ordered Routine Peripheral IV Insertion Adult [OM.PC] Routine Oth 03/05/21 07:09 Ordered Resuscitation Status Routine Resus Stat 03/05/21 07:09 Ordered Medication Orders Diphenhydramine HCl (Diphenhydramine 50 Mg/Ml Sdv) 25 mg IVPUSH Q6H PRN PRN Reason: pruritis Ephedrine Sulfate (Ephedrine 50 Mg/Ml Sdv) 5 mg IVPUSH ASDIRECTED PRN PRN Reason: Hypotension Fentanyl (Fentanyl 100 Mcg/2 Ml Sdv) 100 mcg EPIDUR Q3H PRN PRN Reason: Pain Fentanyl/Bupivacaine HCl (Bupivacaine/Fentanyl/Ns 100 Ml Bag) 100 ml EPIDUR ASDIRECTED PRN PRN Reason: Pain Oxytocin/Lactated Ringer's (Pitocin In Lr 10 Units/1,000 Ml) 10 unit in 1,000 mls @ 12 mls/hr IV TITRATE ALIX; Protocol Last Admin: 03/05/21 07:46 Dose: 2 munits/min, 12 mls/hr Documented by: SAMINA Oxytocin/Lactated Ringer's (Pitocin In Lr 10 Units/1,000 Ml) 10 unit in 1,000 mls @ 500 mls/hr IV .CONTINUOUS ALIX Lactated Ringer's (Ringers, Lactated) 1,000 mls @ 100 mls/hr IV ASDIRECTED ALIX Last Admin: 03/05/21 07:44 Dose: 100 mls/hr Documented by: SAMINA Nalbuphine HCl (Nalbuphine 10 Mg/1 Ml Vial) 10 mg IVPUSH Q2H PRN PRN Reason: Pain Ondansetron HCl (Ondansetron 4 Mg/2 Ml Sdv) 4 mg IVPUSH Q4H PRN PRN Reason: Nausea/Vomiting Sodium Chloride (Sodium Chloride 0.9% 10 Ml Syringe) 10 ml FLUSH ASDIRECTED PRN PRN Reason: Keep Vein Open Assessment/Plan Comment:: * Labs to be done * GBS negative * Pitocin and AROM for IOL * Pain management per patient preference * Anticipate
--- NOTE | 2021-03-05 12:38 | PCM.PREANE ---
Preanesthetic Assessment - Procedure Proposed Procedure: Epidural - Anesthesia/Transfusion/Family Hx Anesthesia History: Prior Anesthesia Without Reaction Family History of Anesthesia Reaction: No Transfusion History: No Prior Transfusion(s) - Review of Systems General: Fatigue, Malaise Pulmonary: No Symptoms Cardiovascular: No Symptoms Gastrointestinal: Abdominal Pain (labor) Neurological: No Symptoms Other: Reports: None - Physical Assessment Vital Signs: Last Vital Signs Temp 37.1 C 03/05/21 07:09 Pulse 75 03/05/21 07:09 Resp 14 03/05/21 07:09 BP 120/83 03/05/21 07:09 Pulse Ox 100 03/05/21 07:09 Height: 1.73 m Weight: 77.927 kg ASA Class: 2 Mental Status: Alert & Oriented x3 Airway Class: Mallampati = 1 Dentition: Reports: Normal Dentition Thyro-Mental Finger Breadths: 3 Mouth Opening Finger Breadths: 3 ROM/Head Extension: Full Lungs: Clear to Auscultation, Normal Respiratory Effort Cardiovascular: Regular Rate, Regular Rhythm - Lab Values: Laboratory Last Values WBC 9.35 K/mm3 (3.98-10.04) 03/05/21 07:23 RBC 4.18 M/mm3 (3.98-5.22) 03/05/21 07:23 Hgb 12.7 gm/dl (11.2-15.7) 03/05/21 07:23 Hct 38.3 % (34.1-44.9) 03/05/21 07:23 MCV 91.6 fl (79.4-94.8) D 03/05/21 07:23 MCH 30.4 pg (25.6-32.2) 03/05/21 07:23 MCHC 33.2 g/dl (32.2-35.5) 03/05/21 07:23 RDW Std Deviation 43.9 fL (36.4-46.3) 03/05/21 07:23 Plt Count 194 K/mm3 (182-369) 03/05/21 07:23 MPV 11.4 fl (9.4-12.3) 03/05/21 07:23 Neut % (Auto) 68.1 % (34.0-71.1) 03/05/21 07:23 Lymph % (Auto) 17.2 % (19.3-51.7) L 03/05/21 07:23 [place] % (Auto) 10.6 % (4.7-12.5) 03/05/21 07:23 Eos % (Auto) 2.8 (0.7-5.8) 03/05/21 07:23 Baso % (Auto) 0.4 % (0.1-1.2) 03/05/21 07:23 Neut # (Auto) 6.37 K/mm3 (1.56-6.13) H 03/05/21 07:23 Lymph # (Auto) 1.61 K/mm3 (1.18-3.74) 03/05/21 07:23 [place] # (Auto) 0.99 K/mm3 (0.24-0.36) H 03/05/21 07:23 Eos # (Auto) 0.26 K/mm3 (0.04-0.36) 03/05/21 07:23 Baso # (Auto) 0.04 K/mm3 (0.01-0.08) 03/05/21 07:23 SARS-CoV-2 RNA (ALLYSON) Negative (NEGATIVE) 03/05/21 07:20 - Allergies Allergies/Adverse Reactions: Allergies Allergy/AdvReac Type Severity Reaction Status Date / Time No Known Allergies Allergy Verified 03/05/21 08:24 - Anesthesia Plan Pre-Op Medication Ordered: None - Acknowledgements Anesthesia Type Planned: Epidural Pt an Appropriate Candidate for the Planned Anesthesia: Yes Alternatives and Risks of Anesthesia Discussed w Pt/Guardian: Yes Pt/Guardian Understands and Agrees with Anesthesia Plan: Yes PreAnesthesia Questionnaire Gastrointestinal History: Reports: GERD Genitourinary History: 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, 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, 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: - Past Surgical History Other Surgical History Comment: No past surgical history - SUBSTANCE USE Tobacco Use Status *Q: Never Tobacco User Second Hand Smoke Exposure: No Recreational Drug Use History: No - HOME MEDS Home Medications: Home Meds Prenat 115/Iron Fum/Folic/Dss [ 19 Tablet] 1 tab PO DAILY 05/11/19 [History] Cetirizine HCl [Zyrtec] 10 mg PO DAILY 03/05/21 [History] - CURRENT (IN HOUSE) MEDS Current Meds: Current Medications Diphenhydramine HCl (Diphenhydramine 50 Mg/Ml Sdv) 25 mg IVPUSH Q6H PRN PRN Reason: pruritis Ephedrine Sulfate (Ephedrine 50 Mg/Ml Sdv) 5 mg IVPUSH ASDIRECTED PRN PRN Reason: Hypotension Fentanyl (Fentanyl 100 Mcg/2 Ml Sdv) 100 mcg EPIDUR Q3H PRN PRN Reason: Pain Last Admin: 03/05/21 12:08 Dose: 100 mcg Documented by: Fentanyl/Bupivacaine HCl (Bupivacaine/Fentanyl/Ns 100 Ml Bag) 100 ml EPIDUR ASDIRECTED PRN PRN Reason: Pain Last Admin: 03/05/21 12:09 Dose: 100 ml Documented by: Oxytocin/Lactated Ringer's (Pitocin In Lr 10 Units/1,000 Ml) 10 unit in 1,000 mls @ 12 mls/hr IV TITRATE ALIX; Protocol Last Titration: 03/05/21 11:44 Dose: 6 munits/min, 36 mls/hr Documented by: Oxytocin/Lactated Ringer's (Pitocin In Lr 10 Units/1,000 Ml) 10 unit in 1,000 mls @ 500 mls/hr IV .CONTINUOUS ALIX Lactated Ringer's (Ringers, Lactated) 1,000 mls @ 100 mls/hr IV ASDIRECTED ALIX Last Admin: 03/05/21 12:08 Dose: 100 mls/hr Documented by: Nalbuphine HCl (Nalbuphine 10 Mg/1 Ml Vial) 10 mg IVPUSH Q2H PRN PRN Reason: Pain Ondansetron HCl (Ondansetron 4 Mg/2 Ml Sdv) 4 mg IVPUSH Q4H PRN PRN Reason: Nausea/Vomiting Sodium Chloride (Sodium Chloride 0.9% 10 Ml Syringe) 10 ml FLUSH ASDIRECTED PRN PRN Reason: Keep Vein Open Discontinued Medications Lidocaine HCl (Lidocaine 1% 50 Ml Mdv) 50 ml INJECT ONETIME ONE Stop: 03/05/21 07:10
[2021-03-05] MEDS ORDERED: Bupivacaine 0.25% 10 ML SDV ONE (17:00)
--- NOTE | 2021-03-05 17:07 | PCM.DEL ---
L & D Note - General Info Date of Service: 03/05/21 - Delivery Note Labor: Induced by ARM, Induced by Oxytocin Delivery Outcome: Stillbirth Delivery Method: Spontaneous Vaginal Delivery-Single Infant Delivery Mode: Spontaneous Presentation: Right Occiput Anterior (ELINA) Nuchal Cord: Present, Reduced Anesthesia Type: Epidural Amniotic Fluid Description: Clear Episiotomy Type: None Laceration: 2nd Degree, Perineal Suture type: Vicryl Suture size: 2-0 Placenta: Intact, Spontaneous Cord: 3 Vessels Estimated Blood Loss: 150 Resuscitation Needed: Yes [place]: Bulb Syringe, Stimulated, Warmed, [place] Used, Warmer Used Delivery Comments (Free Text/Narrative):: Patient fount to be complete and began pushing. With maternal pushing effort head delivered from ELINA presentation. Nuchal cord present and reduced. With gentle downward traction the shoulders and body delivered. placed on maternal abdomen. Cord clamped and cut. Cord blood obtained. Placenta allowed time to separate and expelled intact. Inspection of perineum showed 2nd degree laceration repaired with 2-0 Vicryl - General Info Date of Service: 03/05/21 - Patient Data Vitals - Most Recent: Last Vital Signs Temp 37.1 C 03/05/21 07:09 Pulse 75 03/05/21 07:09 Resp 14 03/05/21 07:09 BP 120/83 03/05/21 07:09 Pulse Ox 100 03/05/21 07:09 Weight - Most Recent: 77.927 kg - Exam Urinary Catheter Total Time: 0Days 0Hours - Problem List & Annotations (1) 40 weeks gestation of SNOMED Code(s): 05578019 Code(s): Z3A.40 - 40 WEEKS GESTATION OF Status: Acute Current Visit: No (2) Vaginal delivery SNOMED Code(s): 527671575 Code(s): O80 - ENCOUNTER FOR FULL-TERM UNCOMPLICATED DELIVERY Status: Acute Current Visit: No - Problem List Review Problem List Initiated/Reviewed/Updated: Yes - My Orders Last 24 Hours: My Active Orders 03/05/21 07:09 Patient Status [ADT] Routine Activity as Tolerated [RC] PFP Communication Order [RC] ASDIRECTED Non Stress Test [RC] PER UNIT ROUTINE Notify Provider [RC] PFP Notify Provider [RC] PRN Vital Signs [RC] PER UNIT ROUTINE BLOOD BANK HOLD SPECIMEN [BBK] Stat Nalbuphine [Nubain] 10 mg IVPUSH Q2H PRN Ondansetron [Zofran] 4 mg IVPUSH Q4H PRN Sodium Chloride 0.9% [Saline Flush] 10 ml FLUSH ASDIRECTED PRN Electronic Heart Tones Ext w TOCO [WOMSER] Routine Electronic Heart Tones Internal [WOMSER] Per Unit Routine Peripheral IV Insertion Adult [OM.PC] Routine Resuscitation Status Routine 03/05/21 07:10 Heart Tones [RC] ASDIRECTED Peripheral IV Care [RC] . DIRECTED 03/05/21 07:15 Lactated Ringers [Ringers, Lactated] 1,000 ml IV ASDIRECTED Oxytocin/Lactated Ringers [Pitocin in LR 10 Units/1,000 ML] 10 unit in 1,000 ml IV .CONTINUOUS Oxytocin/Lactated Ringers [Pitocin in LR 10 Units/1,000 ML] 10 unit in 1,000 ml IV TITRATE 03/05/21 07:23 RAPID PLASMA REAGIN,RPR [CHEM] Routine 03/05/21 17:05 Patient Status Manage Transfer [TRANSFER] Routine - Assessment Assessment:: PPD#0 - Plan Plan:: * Routine cares * Breast feeding * Discharge home in 1-2 days
[2021-03-05] MEDS ORDERED: Docusate Sodium 100 MG Cap PO PRN (18:10)
[2021-03-05] MEDS ORDERED: Witch Hazel Medicated Pads 40/Jar TOP PRN (18:10)
[2021-03-05] MEDS ORDERED: Benzocaine/Menthol 20%-0.5% Spray 78 GM Cannister TOP PRN (18:10)
[2021-03-05] MEDS ORDERED: Acetaminophen 325 MG Tab PO PRN (18:10)
[2021-03-05] MEDS: Ibuprofen 600 MG Tab PO PRN (20:23)
[2021-03-06] MEDS: Ibuprofen 600 MG Tab PO PRN ×3 (02:53→21:10)
--- NOTE | 2021-03-06 04:23 | PCM.PNPP ---
- General Info Date of Service: 03/06/21 Functional Status: Reports: Pain Controlled, Tolerating Diet, Ambulating, Urinating - Review of Systems General: Reports: No Symptoms Pulmonary: Reports: No Symptoms Cardiovascular: Reports: No Symptoms Gastrointestinal: Reports: No Symptoms Genitourinary: Reports: No Symptoms Musculoskeletal: Reports: No Symptoms Neurological: Reports: No Symptoms - General Info Date of Service: 03/06/21 - Patient Data Vital Signs - Most Recent: Last Vital Signs Temp 36.4 C 03/06/21 02:52 Pulse 54 L 03/06/21 02:52 Resp 15 03/06/21 02:52 BP 108/62 03/06/21 02:52 Pulse Ox 100 03/06/21 02:52 Weight - Most Recent: 77.927 kg I&O - Last 24 Hours: Intake & Output 03/05/21 03/05/21 03/06/21 14:59 22:59 06:59 Output Total 500 Balance -500 Lab Results - Last 24 Hours: Laboratory Results - last 24 hr 03/05/21 03/05/21 03/05/21 Range/Units 07:20 07:23 07:23 WBC 9.35 (3.98-10.04) K/mm3 RBC 4.18 (3.98-5.22) M/mm3 Hgb 12.7 (11.2-15.7) gm/dl Hct 38.3 (34.1-44.9) % MCV 91.6 D (79.4-94.8) fl MCH 30.4 (25.6-32.2) pg MCHC 33.2 (32.2-35.5) g/dl RDW Std Deviation 43.9 (36.4-46.3) fL Plt Count 194 (182-369) K/mm3 MPV 11.4 (9.4-12.3) fl Neut % (Auto) 68.1 (34.0-71.1) % Lymph % (Auto) 17.2 L (19.3-51.7) % [place] % (Auto) 10.6 (4.7-12.5) % Eos % (Auto) 2.8 (0.7-5.8) Baso % (Auto) 0.4 (0.1-1.2) % Neut # (Auto) 6.37 H (1.56-6.13) K/mm3 Lymph # (Auto) 1.61 (1.18-3.74) K/mm3 [place] # (Auto) 0.99 H (0.24-0.36) K/mm3 Eos # (Auto) 0.26 (0.04-0.36) K/mm3 Baso # (Auto) 0.04 (0.01-0.08) K/mm3 RPR Non-reactive (NONREACTIVE) SARS-CoV-2 RNA (ALLYSON) Negative (NEGATIVE) Med Orders - Current: Current Medications Acetaminophen (Acetaminophen 325 Mg Tab) 650 mg PO Q4H PRN PRN Reason: mild pain or fever Benzocaine/Menthol (Benzocaine/Menthol 20%-0.5% [place] 78 Gm Cannister) 0 gm TOP ASDIRECTED PRN PRN Reason: Perineal Comfort Measure Last Admin: 03/05/21 20:24 Dose: 1 can Documented by: Docusate Sodium (Docusate Sodium 100 Mg Cap) 100 mg PO BID PRN PRN Reason: Constipation Ibuprofen (Ibuprofen 600 Mg Tab) 600 mg PO Q6H PRN PRN Reason: Mild pain or fever Last Admin: 03/06/21 02:53 Dose: 600 mg Documented by: Maria Del Carmen Mendez (Maria Del Carmen Mendez Medicated Pads 40/Jar) 1 pad TOP ASDIRECTED PRN PRN Reason: Perineal Comfort Measure Last Admin: 03/05/21 20:23 Dose: 1 tub Documented by: Discontinued Medications Diphenhydramine HCl (Diphenhydramine 50 Mg/Ml Sdv) 25 mg IVPUSH Q6H PRN PRN Reason: pruritis Ephedrine Sulfate (Ephedrine 50 Mg/Ml Sdv) 5 mg IVPUSH ASDIRECTED PRN PRN Reason: Hypotension Fentanyl (Fentanyl 100 Mcg/2 Ml Sdv) 100 mcg EPIDUR Q3H PRN PRN Reason: Pain Last Admin: 03/05/21 12:08 Dose: 100 mcg Documented by: Fentanyl/Bupivacaine HCl (Bupivacaine/Fentanyl/Ns 100 Ml Bag) 100 ml EPIDUR ASDIRECTED PRN PRN Reason: Pain Last Admin: 03/05/21 12:09 Dose: 100 ml Documented by: Oxytocin/Lactated Ringer's (Pitocin In Lr 10 Units/1,000 Ml) 10 unit in 1,000 mls @ 12 mls/hr IV TITRATE ALIX; Protocol Last Titration: 03/05/21 14:44 Dose: 6 munits/min, 36 mls/hr Documented by: Oxytocin/Lactated Ringer's (Pitocin In Lr 10 Units/1,000 Ml) 10 unit in 1,000 mls @ 500 mls/hr IV .CONTINUOUS ALIX Last Admin: 03/05/21 16:46 Dose: 500 mls/hr Documented by: Lactated Ringer's (Ringers, Lactated) 1,000 mls @ 100 mls/hr IV ASDIRECTED ALIX Last Admin: 03/05/21 12:08 Dose: 100 mls/hr Documented by: Lidocaine HCl (Lidocaine 1% 50 Ml Mdv) 50 ml INJECT ONETIME ONE Stop: 03/05/21 07:10 Last Admin: 03/05/21 23:25 Dose: Not Given Documented by: Nalbuphine HCl (Nalbuphine 10 Mg/1 Ml Vial) 10 mg IVPUSH Q2H PRN PRN Reason: Pain Ondansetron HCl (Ondansetron 4 Mg/2 Ml Sdv) 4 mg IVPUSH Q4H PRN PRN Reason: Nausea/Vomiting Sodium Chloride (Sodium Chloride 0.9% 10 Ml Syringe) 10 ml FLUSH ASDIRECTED PRN PRN Reason: Keep Vein Open - Infant Interaction Infant Disposition, : to Nursery Feeding: Attempted ; Nursed Fair/Poor (pumping) Support Person: - Recovery Exam Fundal Tone: Firm Fundal Level: 2 Fingerbreadths Below Umbilicus Fundal Placement: Midline Lochia Amount: Small Lochia Color: Rubra/Red Perineum Description: Other (see below) Other Perinuem Description: 2nd degree with repair Bladder Status: Voiding Urinary Elimination: Voided - Exam General: Alert, Oriented, Cooperative GI/Abdominal Exam: Soft, Non-Tender - Problem List & Annotations (1) 40 weeks gestation of SNOMED Code(s): 04821581 Code(s): Z3A.40 - 40 WEEKS GESTATION OF Status: Acute Current Visit: No (2) Vaginal delivery SNOMED Code(s): 006836206 Code(s): O80 - ENCOUNTER FOR FULL-TERM UNCOMPLICATED DELIVERY Status: Acute Current Visit: No - Problem List Review Problem List Initiated/Reviewed/Updated: Yes - My Orders Last 24 Hours: My Active Orders 03/05/21 07:09 Resuscitation Status Routine 03/05/21 Dinner Regular Diet [DIET] 03/05/21 18:10 Acetaminophen [TylenoL] 650 mg PO Q4H PRN Benzocaine/Menthol [Dermoplast Pain Relief 20%-0.5% [place]] See Dose Instructions TOP ASDIRECTED PRN Docusate Sodium [Colace] 100 mg PO BID PRN Ibuprofen [Motrin] 600 mg PO Q6H PRN witch Baldo [Tucks] 1 pad TOP ASDIRECTED PRN Heat Therapy [OM.PC] PRN 03/05/21 18:10 Activity as Tolerated [RC] PER UNIT ROUTINE Vital Signs [RC] ,,, Assess Lochia [WOMSER] Per Unit Routine Assess Uterine Involution [WOMSER] Per Unit Routine Breast Pump [WOMSER] Per Unit Routine Ice Therapy [OM.PC] Per Unit Routine Perineal Care [OM.PC] Per Unit Routine Peripheral IV Discontinue [OM.PC] Routine Sitz Bath [OM.PC] Per Unit Routine 03/06/21 18:10 Heat Therapy [OM.PC] PRN - Assessment Assessment:: PPD#1 - Plan Plan:: * Routine cares * Breast feeding (pumping while baby in Level2) * Discharge home tomorrow
--- NOTE | 2021-03-06 17:00 | PCM48HPAN ---
Post Anesthesia Note - EVALUATION WITHIN 48HRS OF ANESTHETIC Vital Signs in Normal Range: Yes Patient Participated in Evaluation: Yes Respiratory Function Stable: Yes Airway Patent: Yes Cardiovascular Function Stable: Yes Hydration Status Stable: Yes Pain Control Satisfactory: Yes Nausea and Vomiting Control Satisfactory: Yes Mental Status Recovered: Yes Vital Signs: Last Vital Signs Temp 36.4 C 03/06/21 15:51 Pulse 68 03/06/21 15:51 Resp 16 03/06/21 15:51 BP 106/79 03/06/21 15:51 Pulse Ox 97 03/06/21 15:51
--- NOTE | 2021-03-07 04:14 | PCM.DCSUM1 ---
Discharge Summary - Discharge Data Discharge Date: 03/07/21 Discharge Disposition: Home, Self-Care 01 Condition: Good - Referral to Home Health Primary Care Physician: Deepa Melo MD - Discharge Diagnosis/Problem(s) (1) 40 weeks gestation of SNOMED Code(s): 21003077 ICD Code: Z3A.40 - 40 WEEKS GESTATION OF Status: Acute Current Visit: No (2) Vaginal delivery SNOMED Code(s): 528768713 ICD Code: O80 - ENCOUNTER FOR FULL-TERM UNCOMPLICATED DELIVERY Status: Acute Current Visit: No - Patient Summary/Data Complications: None Consults: None Recommended Follow-up Testing/Procedures: Follow up in 3 weeks for check Hospital Course: 30 y/o at 40 1/7 wks who presented for IOL. Done with pitocin and AROM. Progressed well to complete dilation. Underwent an uncomplicated . See delivery note. did well and was discharged home on PPD#2 - Patient Instructions Diet: Regular Diet as Tolerated Activity: As Tolerated Activity, Other: Pelvic rest for 6 weeks Driving: May Drive Today Showering/Bathing: May Shower Showering/Bathing, Other: May Bathe Notify Provider of: Fever, Increased Pain, Swelling and Redness, Drainage, Nausea and/or Vomiting - Discharge Plan *PRESCRIPTION DRUG MONITORING PROGRAM REVIEWED*: No *COPY OF PRESCRIPTION DRUG MONITORING REPORT IN PATIENT RYAN: No Home Medications: Home Meds Prenat 115/Iron Fum/Folic/Dss [ 19 Tablet] 1 tab PO DAILY 05/11/19 [History] Cetirizine HCl [Zyrtec] 10 mg PO DAILY 03/05/21 [History] Docusate Sodium [Colace] 100 mg PO BID PRN cap 03/05/21 [Rx] Ibuprofen [Motrin] 600 mg PO Q6H PRN tablet 03/05/21 [Rx] Referrals: Deepa Melo MD [Primary Care Provider] - (3 weeks for check ) - Discharge Summary/Plan Comment DC Time >30 min.: No Total # of Minutes for Discharge Time: 15 - Patient Data Vitals - Most Recent: Last Vital Signs Temp 36.3 C 03/07/21 02:00 Pulse 67 03/07/21 02:00 Resp 14 03/07/21 02:00 BP 109/67 03/07/21 02:00 Pulse Ox 96 03/07/21 02:00 Weight - Most Recent: 77.927 kg I&O - Last 24 hours: Intake & Output 03/06/21 03/06/21 03/07/21 14:59 22:59 06:59 Intake Total 120 Balance 120 Med Orders - Current: Current Medications Acetaminophen (Acetaminophen 325 Mg Tab) 650 mg PO Q4H PRN PRN Reason: mild pain or fever Benzocaine/Menthol (Benzocaine/Menthol 20%-0.5% [place] 78 Gm Cannister) 0 gm TOP ASDIRECTED PRN PRN Reason: Perineal Comfort Measure Last Admin: 03/05/21 20:24 Dose: 1 can Documented by: Docusate Sodium (Docusate Sodium 100 Mg Cap) 100 mg PO BID PRN PRN Reason: Constipation Ibuprofen (Ibuprofen 600 Mg Tab) 600 mg PO Q6H PRN PRN Reason: Mild pain or fever Last Admin: 03/06/21 21:10 Dose: 600 mg Documented by: Maria Del Carmen Mendez (Maria Del Carmen Mendez Medicated Pads 40/Jar) 1 pad TOP ASDIRECTED PRN PRN Reason: Perineal Comfort Measure Last Admin: 03/05/21 20:23 Dose: 1 tub Documented by: Discontinued Medications Bupivacaine HCl (Bupivacaine 0.25% 10 Ml Sdv) 10 ml .ROUTE .STK-MED ONE Stop: 03/05/21 17:01 Diphenhydramine HCl (Diphenhydramine 50 Mg/Ml Sdv) 25 mg IVPUSH Q6H PRN PRN Reason: pruritis Ephedrine Sulfate (Ephedrine 50 Mg/Ml Sdv) 5 mg IVPUSH ASDIRECTED PRN PRN Reason: Hypotension Fentanyl (Fentanyl 100 Mcg/2 Ml Sdv) 100 mcg EPIDUR Q3H PRN PRN Reason: Pain Last Admin: 03/05/21 12:08 Dose: 100 mcg Documented by: Fentanyl/Bupivacaine HCl (Bupivacaine/Fentanyl/Ns 100 Ml Bag) 100 ml EPIDUR ASDIRECTED PRN PRN Reason: Pain Last Admin: 03/05/21 12:09 Dose: 100 ml Documented by: Oxytocin/Lactated Ringer's (Pitocin In Lr 10 Units/1,000 Ml) 10 unit in 1,000 mls @ 12 mls/hr IV TITRATE ALIX; Protocol Last Titration: 03/05/21 14:44 Dose: 6 munits/min, 36 mls/hr Documented by: Oxytocin/Lactated Ringer's (Pitocin In Lr 10 Units/1,000 Ml) 10 unit in 1,000 mls @ 500 mls/hr IV .CONTINUOUS ALIX Last Admin: 03/05/21 16:46 Dose: 500 mls/hr Documented by: Lactated Ringer's (Ringers, Lactated) 1,000 mls @ 100 mls/hr IV ASDIRECTED ALIX Last Admin: 03/05/21 12:08 Dose: 100 mls/hr Documented by: Lidocaine HCl (Lidocaine 1% 50 Ml Mdv) 50 ml INJECT ONETIME ONE Stop: 03/05/21 07:10 Last Admin: 03/05/21 23:25 Dose: Not Given Documented by: Nalbuphine HCl (Nalbuphine 10 Mg/1 Ml Vial) 10 mg IVPUSH Q2H PRN PRN Reason: Pain Ondansetron HCl (Ondansetron 4 Mg/2 Ml Sdv) 4 mg IVPUSH Q4H PRN PRN Reason: Nausea/Vomiting Sodium Chloride (Sodium Chloride 0.9% 10 Ml Syringe) 10 ml FLUSH ASDIRECTED PRN PRN Reason: Keep Vein Open
--- NOTE | 2021-03-07 04:14 | PCM.PNPP ---
- General Info Date of Service: 03/07/21 Functional Status: Reports: Pain Controlled, Tolerating Diet, Ambulating, Urinating - Review of Systems General: Reports: No Symptoms Pulmonary: Reports: No Symptoms Cardiovascular: Reports: No Symptoms Gastrointestinal: Reports: No Symptoms Genitourinary: Reports: No Symptoms Musculoskeletal: Reports: No Symptoms Neurological: Reports: No Symptoms - General Info Date of Service: 03/07/21 - Patient Data Vital Signs - Most Recent: Last Vital Signs Temp 36.3 C 03/07/21 02:00 Pulse 67 03/07/21 02:00 Resp 14 03/07/21 02:00 BP 109/67 03/07/21 02:00 Pulse Ox 96 03/07/21 02:00 Weight - Most Recent: 77.927 kg I&O - Last 24 Hours: Intake & Output 03/06/21 03/06/21 03/07/21 14:59 22:59 06:59 Intake Total 120 Balance 120 Med Orders - Current: Current Medications Acetaminophen (Acetaminophen 325 Mg Tab) 650 mg PO Q4H PRN PRN Reason: mild pain or fever Benzocaine/Menthol (Benzocaine/Menthol 20%-0.5% [place] 78 Gm Cannister) 0 gm TOP ASDIRECTED PRN PRN Reason: Perineal Comfort Measure Last Admin: 03/05/21 20:24 Dose: 1 can Documented by: Docusate Sodium (Docusate Sodium 100 Mg Cap) 100 mg PO BID PRN PRN Reason: Constipation Ibuprofen (Ibuprofen 600 Mg Tab) 600 mg PO Q6H PRN PRN Reason: Mild pain or fever Last Admin: 03/06/21 21:10 Dose: 600 mg Documented by: Maria Del Carmen Mendez (Maria Del Carmen Mendez Medicated Pads 40/Jar) 1 pad TOP ASDIRECTED PRN PRN Reason: Perineal Comfort Measure Last Admin: 03/05/21 20:23 Dose: 1 tub Documented by: Discontinued Medications Bupivacaine HCl (Bupivacaine 0.25% 10 Ml Sdv) 10 ml .ROUTE .STK-MED ONE Stop: 03/05/21 17:01 Diphenhydramine HCl (Diphenhydramine 50 Mg/Ml Sdv) 25 mg IVPUSH Q6H PRN PRN Reason: pruritis Ephedrine Sulfate (Ephedrine 50 Mg/Ml Sdv) 5 mg IVPUSH ASDIRECTED PRN PRN Reason: Hypotension Fentanyl (Fentanyl 100 Mcg/2 Ml Sdv) 100 mcg EPIDUR Q3H PRN PRN Reason: Pain Last Admin: 03/05/21 12:08 Dose: 100 mcg Documented by: Fentanyl/Bupivacaine HCl (Bupivacaine/Fentanyl/Ns 100 Ml Bag) 100 ml EPIDUR ASDIRECTED PRN PRN Reason: Pain Last Admin: 03/05/21 12:09 Dose: 100 ml Documented by: Oxytocin/Lactated Ringer's (Pitocin In Lr 10 Units/1,000 Ml) 10 unit in 1,000 mls @ 12 mls/hr IV TITRATE ALIX; Protocol Last Titration: 03/05/21 14:44 Dose: 6 munits/min, 36 mls/hr Documented by: Oxytocin/Lactated Ringer's (Pitocin In Lr 10 Units/1,000 Ml) 10 unit in 1,000 mls @ 500 mls/hr IV .CONTINUOUS ALIX Last Admin: 03/05/21 16:46 Dose: 500 mls/hr Documented by: Lactated Ringer's (Ringers, Lactated) 1,000 mls @ 100 mls/hr IV ASDIRECTED ALIX Last Admin: 03/05/21 12:08 Dose: 100 mls/hr Documented by: Lidocaine HCl (Lidocaine 1% 50 Ml Mdv) 50 ml INJECT ONETIME ONE Stop: 03/05/21 07:10 Last Admin: 03/05/21 23:25 Dose: Not Given Documented by: Nalbuphine HCl (Nalbuphine 10 Mg/1 Ml Vial) 10 mg IVPUSH Q2H PRN PRN Reason: Pain Ondansetron HCl (Ondansetron 4 Mg/2 Ml Sdv) 4 mg IVPUSH Q4H PRN PRN Reason: Nausea/Vomiting Sodium Chloride (Sodium Chloride 0.9% 10 Ml Syringe) 10 ml FLUSH ASDIRECTED PRN PRN Reason: Keep Vein Open - Interaction Disposition, : [place] to Nursery Infant Interaction: Holding Infant Infant Feeding: Attempted ; Nursed Fair/Poor (pumping) Support Person: - Recovery Exam Fundal Tone: Firm Fundal Level: 1 Fingerbreadths Below Umbilicus Fundal Placement: Midline Lochia Amount: Scant Lochia Color: Rubra/Red Perineum Description: Other (see below) Other Perinuem Description: no complaints, 2' with repair Episiotomy/Laceration: Approximated Bladder Status: Voiding Urinary Elimination: Voided - Exam General: Alert, Oriented, Cooperative GI/Abdominal Exam: Soft, Non-Tender - Problem List & Annotations (1) 40 weeks gestation of SNOMED Code(s): 86759131 Code(s): Z3A.40 - 40 WEEKS GESTATION OF Status: Acute Current Visit: No (2) Vaginal delivery SNOMED Code(s): 224561496 Code(s): O80 - ENCOUNTER FOR FULL-TERM UNCOMPLICATED DELIVERY Status: Acute Current Visit: No - Problem List Review Problem List Initiated/Reviewed/Updated: Yes - My Orders Last 24 Hours: My Active Orders 03/06/21 18:10 Heat Therapy [OM.PC] PRN 03/07/21 04:13 Ready for Discharge [RC] PER UNIT ROUTINE - Assessment Assessment:: PPD#2 - Plan Plan:: * Routine cares * Breast feeding * Discharge home today
[2021-03-07] MEDS: Ibuprofen 600 MG Tab PO PRN ×2 (10:38→15:50)
== END 2021-03-07 15:51 | disposition home or self-care (01) | DRG 560 ==
LOC: JD.OB 06:58 → OBSVTOIN 15:51 → JD.OB 15:51
PROVIDERS: ADMIT Obstetrics & Gynecology; ATTEND Obstetrics & Gynecology
PROC: 10E0XZZ Delivery of Products of Conception, External Approach (ICD-10-PCS; principal; 2021-03-05)
PROC: 10907ZC Drainage of Amniotic Fluid, Therapeutic from Products of Conception, Via Natural or Artificial Opening (ICD-10-PCS; 2021-03-05)
PROC: 3E033VJ Introduction of Other Hormone into Peripheral Vein, Percutaneous Approach (ICD-10-PCS; 2021-03-05)
PROC: 0KQM0ZZ Repair Perineum Muscle, Open Approach (ICD-10-PCS; 2021-03-05)
DX: O48.0 Post-term pregnancy (principal); Z37.0 Single live birth; Z3A.40 40 weeks gestation of pregnancy; O70.1 Second degree perineal laceration during delivery; O99.62 Diseases of the digestive system complicating childbirth; K21.9 Gastro-esophageal reflux disease without esophagitis; Z20.822 Contact with and (suspected) exposure to COVID-19
CPT/HCPCS: 36415; 51702; 59025; 59409; 85025; 86592; A9270-GY; J2590; J3010; J3490; J7120; U0002